=== PATIENT | male | born 1950 | race Caucasian/White ===

== ENCOUNTER 2017-06-29 22:22 | Emergency (ER) | payer MEDICAID ==
[2017-06-30 00:48] VITALS: BP 164/85
== END 2017-06-30 00:48 | disposition home or self-care (01) ==
LOC: ED 22:22
DX: K08.89 Other specified disorders of teeth and supporting structures (principal); I10 Essential (primary) hypertension; E11.9 Type 2 diabetes mellitus without complications; Z79.84 Long term (current) use of oral hypoglycemic drugs

== ENCOUNTER 2018-03-06 22:54 | Emergency (ER) | payer MEDICAID ==
[~2018-03-06] VITALS: Ht 157.5 cm; Wt 69.8 kg
[2018-03-06 23:38] VITALS: BP 140/71; Ht 157.5 cm; Wt 69.8 kg
== END 2018-03-07 01:21 | disposition left against medical advice (07) ==
LOC: ED 22:54
DX: Z53.21 Procedure and treatment not carried out due to patient leaving prior to being seen by health care provider (principal)

== ENCOUNTER 2018-09-05 17:05 | Emergency (ER) | payer MEDICAID ==
[~2018-09-05] VITALS: Ht 160 cm; Wt 71.7 kg
[2018-09-05 17:24] VITALS: BP 153/71; Ht 160 cm; Wt 71.7 kg
== END 2018-09-05 19:05 | disposition home or self-care (01) ==
LOC: ED 17:05
DX: J20.9 Acute bronchitis, unspecified (principal); I10 Essential (primary) hypertension; E11.9 Type 2 diabetes mellitus without complications; M19.90 Unspecified osteoarthritis, unspecified site

== ENCOUNTER 2018-11-22 09:59 | Emergency (ER) | payer MEDICAID ==
[~2018-11-22] VITALS: Ht 160 cm; Wt 68.5 kg
[2018-11-22 10:23] VITALS: Ht 160 cm; Wt 68.5 kg
[2018-11-22 11:11] LABS: CALCIUM 8.8 mg/dL (8.5-10.1); CARBON DIOXIDE 28.8 mmol/L (21-32); CHLORIDE SERUM 98 mmol/L (98-107); CREATININE SERUM 0.8 mg/dL (0.7-1.3); GFR1 > 60 mL/min; GLUCOSE SERUM 195 mg/dL (74-106); POTASSIUM SERUM 4.4 mmol/L (3.5-5.1); SODIUM SERUM 134 mmol/L (136-145)
[2018-11-22 11:12] LABS: BASOPHIL % 0.1 % (0-2); PLATELET COUNT 241 x10^3mcL (130-400); RED CELL DISTRIBUTION WIDTH 13.1 % (11.5-14.5)
[2018-11-22 11:15] LABS: ALBUMIN 3.8 g/dL (3.4-5.0); ALKALINE PHOSPHATASE 96 U/L (46-116); ALT/SGPT 30 U/L (16-63); AST/SGOT 28 U/L (15-37); TOTAL PROTEIN, SERUM 8.2 g/dL (6.4-8.2)
[2018-11-22 12:51] VITALS: BP 123/66
== END 2018-11-22 12:51 | disposition home or self-care (01) ==
LOC: ED 09:59
PROVIDERS: Emergency Medicine
DX: J11.1 Influenza due to unidentified influenza virus with other respiratory manifestations (principal)
CPT/HCPCS: 87804; J7030

== ENCOUNTER 2019-03-26 18:58 | Emergency (ER) | payer MEDICAID ==
[~2019-03-26] VITALS: Ht 157.5 cm; Wt 72.2 kg
[2019-03-26 19:19] VITALS: Ht 157.5 cm; Wt 72.2 kg
[2019-03-26 20:24] VITALS: BP 145/75
== END 2019-03-26 20:24 | disposition home or self-care (01) ==
LOC: ED 18:58
DX: S90.862A Insect bite (nonvenomous), left foot, initial encounter (principal); E11.9 Type 2 diabetes mellitus without complications; I10 Essential (primary) hypertension; E78.00 Pure hypercholesterolemia, unspecified; M19.90 Unspecified osteoarthritis, unspecified site; W57.XXXA Bitten or stung by nonvenomous insect and other nonvenomous arthropods, initial encounter; Y93.89 Activity, other specified; Y92.89 Other specified places as the place of occurrence of the external cause; Y99.8 Other external cause status
CPT/HCPCS: 82962; J1885

== ENCOUNTER 2019-03-28 12:46 | Inpatient (IN) | payer MEDICAID ==
[~2019-03-28] VITALS: Ht 157.5 cm; Wt 73.0 kg
[2019-03-28 12:56] VITALS: Ht 157.5 cm; Wt 73.0 kg
--- NOTE | 2019-03-28 13:00 | NUR ---
TO [place] AREA VIA W/C.
--- NOTE | 2019-03-28 13:45 | NUR ---
PT TO ED FOR EVAL OF L FOOT REDNESS, SWELLING, AND PAIN. PT WAS SEEN ON 03/26 FOR SAME COMPLAINT. STATES REDNESS AND SWELLING BECOMING WORSE. DENIES FEVER OR CHILLS. PT AWAKE AND ALERT. BREATHING EVEN UNLABORED IN NAD.
[2019-03-28 14:05] LABS: BASOPHIL % 0.3 % (0-2); PLATELET COUNT 246 x10^3mcL (130-400); RED CELL DISTRIBUTION WIDTH 12.9 % (11.5-14.5)
[2019-03-28 14:14] LABS: CALCIUM 8.6 mg/dL (8.5-10.1); CARBON DIOXIDE 30.7 mmol/L (21-32); CHLORIDE SERUM 105 mmol/L (98-107); CREATININE SERUM 0.7 mg/dL (0.7-1.3); GFR1 > 60 mL/min; GLUCOSE SERUM 199 mg/dL (74-106); POTASSIUM SERUM 4.9 mmol/L (3.5-5.1); SODIUM SERUM 142 mmol/L (136-145)
[2019-03-28 14:19] LABS: ALBUMIN 3.7 g/dL (3.4-5.0); ALKALINE PHOSPHATASE 107 U/L (46-116); ALT/SGPT 26 U/L (16-63); AST/SGOT 14 U/L (15-37); BILIRUBIN TOTAL 0.9 mg/dL (0.20-1.00); TOTAL PROTEIN, SERUM 7.3 g/dL (6.4-8.2)
--- NOTE | 2019-03-28 14:51 | NUR ---
IV ZOSYN INFUSED WELL WITHOUT ANY ADVERSE SIDE EFFECTS, WILL CONT TO MONITOR.
--- NOTE | 2019-03-28 15:16 | NUR ---
PT AND STATES THAT THEY DONT KNOW THE NAMES OF THEIR HOME MEDS, ADVISED TO BRING IN SOON POSSIBLE, VERBALIZED UNDERSTANDING.
--- NOTE | 2019-03-28 15:34 | NUR ---
REPORT GIVEN TO ZEN RN, UPDATED ON STATUS, LABS AND VITALS,.PT STABLE FOR DISCHARGE.
--- NOTE | 2019-03-28 15:35 | NUR ---
CALLED [facility] TO OBTAIN PT'S MED REC. THEY GAVE ME ANOTHER NUMBER TO CALL. CALLED WHICH ENDED UP BEING MEDICAL RECORDS. THEY ASKED FOR A RELEASE TO BE FAXED TO . I PRINTED OUT A RELEASE & HAD PT SIGN, GIVING HIM A INDONESIAN COPY. I FAXED THE RELEASE TO THE ABOVE NUMBER.
[2019-03-28 16:01] VITALS: BP 156/63
--- NOTE | 2019-03-28 16:12 | NUR ---
RECEIVED PT FROM ER, PT ADMIT FOR LEFT FOOT CELULITTIS, PT IS A/O X4, VERBAL RESPONSIVE, ABLE TO TELL WHAT HE NEEDS. LUNG SOUND DIM ONOFRE BASE, DENY ANY SOB, PO2 98% IN ROOM AIR, DENY ANY CHEST PAIN OR DISCOMFORT, BOWEL SOUND PRESENT ALL 4 QUADRANTS, PT C/O MILD PAIN MID, AND MILD DISTENTED. PEDAL PULSE PRESENT BOTH FEET,NO EDEMA, IV AT LEFT AC, NO LEAKING, NO INFILTRAITON. ALL ADLS ASSIST, ALL NEED MET, CALL LIGHT IN REACH, WILL CONTINUE TO MONITOR.
--- NOTE | 2019-03-28 16:30 | NUR ---
RECEIVED PT ,RESOURCE NURSE.AAO X4.C/O MILD PAIN ON L FOOT.LUNG SOUND DIM ON THE BASES.IVF NS GOING AT 50 ML/HR INFUSING WELL.L FOOT WITH REDNESS AND SWELLING.ROMANIAN MOSTLY.CALL LIGHT WITHIN REACH.INSTRUCTED TO CALL FOR ANY PAIN/DISCOMFORT.WILL CONTINUE TO MONITOR PT.
--- NOTE | 2019-03-28 17:41 | NUR ---
FOUND A FAX ON OUR FAX MACHINE THEY FAXED MY COVER SHEET, NO ATTACHED MED REC, W/ A PT LABEL ATTACHED @ THE BOTTOM WHICH WAS NOT PT'S NAME OR . TRIED CALLING CLINIC BACK BUT THEY ARE CLOSED.
--- NOTE | 2019-03-28 18:10 | NUR ---
PT RESTING IN BED, VERBAL, SWEDISH, AXOX4, PERRLA, IN NO ACUTE RESP DISTRESS, REPORTED NO PAIN/CP/PRESSURE, DENIED N/V/WILKINS, RESP EVEN AND NON-LABORED, CHEST RISE SYMMETRICALLY, FAMILY AT BEDSIDE, AMBULATORY, CONTINENT, IV PATENT AND INFUSING WELL, PALP PULSES, CAP REFIL < 2 SEC, CALL LIGHT IN REACH, BED AT LOW POSTITION, RAILS X 2, WILL ENDORSE TO ONCOMING RN
--- NOTE | 2019-03-28 19:15 | NUR ---
PT RECIEVED FROM THE DAY SHIFT RN. PT IS ALERT AND ORIENTED X4, CALM AND COOPERATIVE WITH CARE, PT AT THE BEDSIDE,PT IS COMPLAINING LEFT FOOT PAIN AT THIS TIME. PT STATES THE PAIN IS 8/10 AND IS PULSATING PAIN. WILL MEDICATE WITH PRN PAIN MEDICATION, OTHER GUO PT HAS NO OTHER CONCERNS OR COMPLAINTS AT THIS TIME. SAFETY AND COMFORT MEASURES MAINTAINED, BED IN LOWEST POSITION, CALL LIGHT WITHIN REACH.
[2019-03-28 20:50] VITALS: BP 144/55
[2019-03-28 21:31] VITALS: BP 144/55
--- NOTE | 2019-03-29 00:06 | NUR ---
PT IS RESTING IN BED WITH EYES CLOSED AT THIS TIME. NO ACUTE DISTRESS NOTED AT THIS TIME. NO S/S OF PAIN NOTED. IV INFUSING AND INTACT AT THIS TIME. SAFETY AND COMFORT MEASURES MAINTAINED, BED IN LOWEST POSITION, CALL LIGHT WITHIN REACH.
--- NOTE | 2019-03-29 02:39 | NUR ---
PT IS RESTING IN BED WITH EYES CLOSED AT THIS TIME. NO ACUTE DISTRESS NOTED. IV IS INFUSING AND INTACT AT THIS TIME. NO S/S OF PAIN NOTED. SAFETY AND COMFORT MEASURES MAINTAINED, BED IN LOWEST POSITION, CALL LIGHT WITHIN REACH.
--- NOTE | 2019-03-29 03:58 | NUR ---
PT IS RESTING IN BED WITH EYES CLOSED AT THIS TIME. NO ACUTE DISTRESS NOTED. SAFETY AND COMFORT MEASURES MAINTAINED, BED IN LOWEST POSITION, CALL LIGHT WITHIN REACH.
--- NOTE | 2019-03-29 05:32 | NUR ---
PT HAS RESTED IN LONG INTERVALS THROUGHOUT THE SHIFT. PT HAS BEEN CALM AND COOPERATIVE WITH CARE. PT HAS NO COMPLAINT AT THIS TIME. PT HAS BEEN ALERT AND ORIENTED X4, NO ACUTE DISTRESS NOTED. SAFETY AND COMFORT MEASURES MAINTAINED, BED IN LOWEST POSITION, CALL LIGHT WITHIN REACH. WILL ENDORSE CONTINUITY OF CARE TO THE ONCOMING RN.
[2019-03-29 05:41] VITALS: BP 146/61
[2019-03-29 06:00] LABS: BASOPHIL % 0.4 % (0-2); PLATELET COUNT 241 x10^3mcL (130-400); RED CELL DISTRIBUTION WIDTH 12.8 % (11.5-14.5)
[2019-03-29 06:12] LABS: CALCIUM 8.5 mg/dL (8.5-10.1); CARBON DIOXIDE 30.9 mmol/L (21-32); CHLORIDE SERUM 106 mmol/L (98-107); CREATININE SERUM 0.8 mg/dL (0.7-1.3); GFR1 > 60 mL/min; GLUCOSE SERUM 123 mg/dL (74-106); POTASSIUM SERUM 4.2 mmol/L (3.5-5.1); SODIUM SERUM 143 mmol/L (136-145)
--- NOTE | 2019-03-29 07:30 | NUR ---
RECEIVED PT IN BED, RESTING, VERBAL, PALESTINIAN, DENIED PAIN/WILKINS/PRESSURE, REFUSED N/V/D, AXOX4, NO FACIAL DROOP/SLURRED SPEECH, CALM AND COOPPERATIVE WITH POC AT THIS TIME, PERRLA, NO REDNESS/DRAINAGE, REST EVEN AND NON-LABORED, IN NO ACUTE DISTRESS, CHEST RISE SYMMETRICALLY, LUNGS DIM BLL, CLEAR BUL, ON RA, MEDSURG, SKIN W/D/C, ERRYTHEMA AND SLIGHT SWEELING TO (L) FOOT, DX: (L) FOOT CELLULITIS, ABD ROUND AND NON-TENDER TO TOUCH, BS ACTIVE X4, PALP PULSE, CAP REFILL <2S, IV SITE TO (L) AC PATENT AND INFUSING WELL, AMBULATORY WITH ASSIST, TRACE EDEMA TO LLE, CONTINENT, CALL LIGHT IN REACH, BED AT LOW POSITION, RAILS X 2, CONTINUE TO MONITOR
--- NOTE | 2019-03-29 07:45 | NUR ---
NOTED HOME MED WITH NORCO 5/325MG 10 TABS, CEPHALEXIN 500MG 30 TABS AT BEDSIDE TABLE, PT AWARE NOT TO TAKE HOME MED TOGETHER WITH HOSP PRESCRIBED MED FOR OD PREVENTION, VERBALLY UNDERTANDING, CO-COUNTED WITH HELGA DORADO, NUMBER CORRECTED, MED WILL BE GIVEN TO WHEN VISIT, PT AWARE, CONTINUE TO MONITOR
--- NOTE | 2019-03-29 09:10 | NUR ---
PT RESTING IN BED, IN NO ACUTE DISTRESS, DENIES PAIN/DISCOMFORT, AM MED GIEVN PER MD ORDER, TAKEN WELL, NO ASE NOTED AT THIS TIME, ALL NEEDS MET, SAFETY PRECAUTION FOLLOWED, CONTINUE TO MONITOR
--- NOTE | 2019-03-29 09:25 | NUR ---
NURSING CO-SIGN THE DOCUMENTATION ENTERED BY THE IP HAS BEEN REVIEWED. REVIEWED/CO-SIGNED BY: Edith Maldonado DOCUMENTATION DONE BY: ABDULKADIR GOVEA RN.
[2019-03-29 09:33] VITALS: BP 156/50
--- NOTE | 2019-03-29 10:24 | NUR ---
PT RESTING IN BED, IN NO ACUTE DISTRESS, REFUSED PAIN/DISCOMFORT AT THIS TIME, V/S CHECKED AT 0955 NOTED BP-156/50 (83), HR-64, 98.1, 16, 97% RA. V/S RECHECKED AT 1015 NOTED BP-150/63 (81), HR-65. PT UNABLE TO RECALL BP BASELINE WHEN AT HOME BUT PT REPORTED NOT TAKING PRESCRIBED BP AT HOME AND HAD NO ISSUE WITH BP WHEN AT HOME, BATCH MIXER DESIRE AWARE, NO NEW ORDER. PT AWARE, CONTINUE TO MONITOR
--- NOTE | 2019-03-29 12:06 | NUR ---
PT RESTING IN BED, FAMILY AT BEDSIDE, PT AND AWARE HOME MEDS KEPT BY PHARMACY PER PROTOCOL, AWARE THAT HOME MED WILL BE GIVEN BACK TO PT WHEN DC HOME FROM PHARMACY, VERBALLY UNDERSTAND, CONTINUE TO MONITOR
--- NOTE | 2019-03-29 12:25 | NUR ---
EPIC INTERFACE ANALYST EEV PAGED RELATED TO DVT PREVENTION PROPHYLAXIS FOR PT D/T PT CAN NOT HAVE SCD ON LEGS D/T PAIN AND SWEELING R/T DX OF (L) FOOT CELLULITIS, AWAITING FOR CALLING BACK
--- NOTE | 2019-03-29 15:13 | NUR ---
PT RESTING IN BED, IN NO ACUTE DISTRESS, REFUSED PAIN/DISCOMFORT, WATER PITCHER CHANGED, ALL NEEDS MET, SAFETY PRECAUTION FOLLOWED, CONTINUE TO MONITOR
--- NOTE | 2019-03-29 16:54 | NUR ---
PT RESTING IN BED, IN NO ACUTE DISTRESS, FAMILY AT BEDISDE, BS CHECKED AND NO INSULIN GIVEN PER SLIDING SCALE F/U MD ORDER VIA EMAR, PT AWARE, ALL NEEDS MET, SAFETY PRECAUTION FOLLOWED, CONTINUE TO MONITOR
[2019-03-29 17:32] VITALS: BP 144/57
--- NOTE | 2019-03-29 18:05 | NUR ---
PT IN BED, AXOX4, VERBAL, IN NO ACUTE DISTRESS, RESP EVEN AND NON-LABORED, CHEST RISE SYMMETRICALLY, DENIED PAIN/DISCOMFORT/PRESSURE, DENIED WILKINS/N/V/DIZZINESS, FAMILY AT BEDSIDE, IV PATENT AND INFUSING WELL, ALL NEEDS MET AT THIS TIME, SAFETY PRECAUTION PROTOCOL FOLLOWED, WILL ENDORSE TO ONCOMING RN
--- NOTE | 2019-03-29 19:27 | NUR ---
RECEIVED AWAKE IN BED WITH LEFT FOOT ELEVATED WITH PILLOWS. SKIN WARM AND DRY TO TOUCH. RESPIRATION EVEN AND UNLABORED. LEFT FOOT WITH SWELLING/REDNESS AND TRACED EDEMA, DENIES ANY PAIN/DISCOMFORT.IV SITE AT THE LAC INTACT AND CLEAR. NO S/S OF INFILTRATION AT THE IV SITE.
[2019-03-29 20:34] VITALS: BP 155/65
--- NOTE | 2019-03-29 21:55 | NUR ---
C/O MODERATE PAIN AT THE LLE, TORADOL 30MG IVP GIVEN PRN MEDICATION. LLE KEPT ELEVATED WITH PILLOWS. ASSISTED IN REPOSITIONING FOR COMFORT.
--- NOTE | 2019-03-29 23:00 | NUR ---
HS SNACK PROVIDED TOLERATED WELL. PT CCALIMED PAIN LEVEL AT THIS TIME 0/10, CLAIMED TOTL RELIEF FRO TRAMADOL IV. ABLE TO RESPOSITION SELF IN BED.
--- NOTE | 2019-03-30 02:36 | NUR ---
CONTINUES ON ATB IVPB FOR MANAGEMENT OF CELLULITIS ON THE LEFT FOOT. NO ADVERSE REACTION NOTED. KEPT LEFT FOOT ELEVATED WITH PILLOWS.
--- NOTE | 2019-03-30 05:45 | NUR ---
BLOOD IQFLN=[id number], NO INSULIN COBVERAGE. IVF NS AT 50ML/HR INFUSING WELL VIA PERIPHERAL LINE TOLERATING WELL. KEPT CLEAN AND DRY. ALL NEEDS ATTENDED.
[2019-03-30 06:00] LABS: BASOPHIL % 0.4 % (0-2); PLATELET COUNT 247 x10^3mcL (130-400); RED CELL DISTRIBUTION WIDTH 12.9 % (11.5-14.5)
[2019-03-30 06:14] VITALS: BP 159/67
[2019-03-30 06:16] LABS: CALCIUM 9.3 mg/dL (8.5-10.1); CARBON DIOXIDE 25.3 mmol/L (21-32); CHLORIDE SERUM 106 mmol/L (98-107); CREATININE SERUM 0.7 mg/dL (0.7-1.3); GFR1 > 60 mL/min; GLUCOSE SERUM 136 mg/dL (74-106); POTASSIUM SERUM 3.9 mmol/L (3.5-5.1); SODIUM SERUM 141 mmol/L (136-145)
--- NOTE | 2019-03-30 07:15 | NUR ---
RECEIVED PT IN BED, RESTING, VERBAL, LATVIAN, DENIED PAIN/WILKINS/PRESSURE, REFUSED N/V/D, REFUSED BREAKFAST, SAID WILL BRING FOOD FROM HOME, AWARE OF [facility] DIET, VERBALLY UNDERSTANDING, AXOX4, NO FACIAL DROOP/SLURRED SPEECH, CALM AND COOPPERATIVE, PERRLA, NO REDNESS/DRAINAGE, REST EVEN AND NON-LABORED, IN NO ACUTE DISTRESS, CHEST RISE SYMMETRICALLY, LUNGS DIM BLL, CLEAR BUL, ON RA, MEDSURG, SKIN W/D/C, ERRYTHEMA AND SLIGHT SWEELING TO (L) FOOT, ABD ROUND AND NON-TENDER TO TOUCH, BS ACTIVE X4, PALP PULSE, CAP REFILL <2S, IV SITE TO (L) AC PATENT AND INFUSING WELL, AMBULATORY, ABLE TO MOVE ALL EXTREMMITIES, VOID X 1, TRACE EDEMA TO LLE, CONTINENT, CALL LIGHT IN REACH, BED AT LOW POSITION, RAILS X 2, CONTINUE TO MONITOR
--- NOTE | 2019-03-30 08:45 | NUR ---
PT IN BED, AXOX4, VERBAL, DENIES PAIN/DIOSCOMFORT AT THIS TIME, AM MED GIVEN PER MD ORDER VIA EMAR, TAKEN WELL, NO ASE NOTED AT THIS TIME, PT IN NO ACUTE DISTRESS CONDITION, CONTINUE TO MONITOR
--- NOTE | 2019-03-30 08:52 | NUR ---
NURSING CO-SIGN THE DOCUMENTATION ENTERED BY THE IP HAS BEEN REVIEWED. REVIEWED/CO-SIGNED BY: Edith Maldonado DOCUMENTATION DONE BY: ABDULKADIR GOVEA RN
--- NOTE | 2019-03-30 08:55 | NUR ---
TALKED TO APPRAISER TIMBER EVE ABOUT PROPHYLAXIS DVT FOR PT DURING HOSPITALIZATION PROTOCOL, APPRAISER TIMBER GIVE NO NEW ORDER, SAID PT MIGHT BE DC HOME LATER TODAY, PT AWARE, HELGA DORADO AWARE, CONTINUE TO MONITOR
[2019-03-30 09:24] VITALS: BP 141/67
[2019-03-30] MEDS ORDERED: AUG500 PO (11:00)
[2019-03-30 11:06] VITALS: BP 141/67
[2019-03-30 11:11] VITALS: BP 141/67
--- NOTE | 2019-03-30 11:13 | NUR ---
PT SLEEPING IN BED, IN NO ACUTE DISTRESS, FAMILY AT BEDSIDE, SAFETY PRECEUTION FOLLOWED, CONTINUE TO MONITOR
--- NOTE | 2019-03-30 14:31 | NUR ---
PT RESTING IN BED, IN NO ACUTE REST DISTRESS, AND SON AT BEDSIDE, SKIN W/D/I, IV REMOVED, IV CATH INTACT AND PATENT, NO ACTIVE BLEEDING NOTED AT SITE, (L) FOOT CELLULITIS PIC TAKEN AND KEPT IN CHART, DC PAPER SIGNED AND KEPT IN CHART, EDUCATION ABOUT CELLULITIS, ATB USE, F/U APPT, DM DIET AND FOOT CARE GIVEN, ATB PRESCRIPTION GIVEN IN DC PACKAGE, HOME MED INCLUDED NORCO 5/325MG 10 TAB AND ATB GIVEN BACK TO PT, CO-COUNTED WITH ART DEALER AND , CORRECT NUMBER, VERBALLY UNDERSTANDING, ALL NEEDS MET AT THIS TIME, RN ASSISTED PT TO LOBBY USING WC. PT LEFT IN NO ACUTE DISTRESS.
== END 2019-03-30 14:41 | disposition home or self-care (01) | DRG 383 ==
LOC: ED 12:46 → MU 14:54
PROVIDERS: Emergency Medicine; ADMIT Internal Medicine
DX: L03.116 Cellulitis of left lower limb (principal); E11.9 Type 2 diabetes mellitus without complications; I10 Essential (primary) hypertension; E78.00 Pure hypercholesterolemia, unspecified; M19.90 Unspecified osteoarthritis, unspecified site; Z68.25 Body mass index [BMI] 25.0-25.9, adult
CPT/HCPCS: 82962; G0378; J1885; J2543; J7030; Q0092

== ENCOUNTER 2020-09-09 21:09 | Emergency (ER) | payer MEDICAID ==
[~2020-09-09] VITALS: Ht 167.6 cm; Wt 70.8 kg
[~2020-09-09 21:09] MED LIST: AUG500 PO
[2020-09-09 21:21] VITALS: Ht 167.6 cm; Wt 70.8 kg
[2020-09-10 00:12] VITALS: BP 141/71
== END 2020-09-10 00:12 | disposition home or self-care (01) ==
LOC: ED 21:09
DX: L03.115 Cellulitis of right lower limb (principal); E11.9 Type 2 diabetes mellitus without complications; M19.90 Unspecified osteoarthritis, unspecified site; E78.00 Pure hypercholesterolemia, unspecified; I10 Essential (primary) hypertension